=== PATIENT | male | born 1990 | race Caucasian/White ===

== ENCOUNTER 2016-05-28 23:12 | Emergency (ER) | payer OTHER ==
[~2016-05-28] VITALS: Ht 165.1 cm; Wt 104.5 kg
[~2016-05-28 23:12] MED LIST: BACTDS PO; CEPH-443 PO; HYDR-902 PO; HYDR-906 PO; OMEP20CA16 PO; OMEP20CA9 PO; ONDA4TAB14 PO; PANT40VI7 PO; ZOF4I PO
[2016-05-28 23:26] VITALS: Ht 165.1 cm; Wt 104.5 kg
[2016-05-29] MEDS ORDERED: IPRATROPIUM (NEB) 0.5 MG/2.5 ML AMP NEB STA (00:18)
[2016-05-29] MEDS ORDERED: ALBUTEROL 0.5% (NEB) 2.5 MG/0.5 ML AMP INH STA (00:18)
--- NOTE | 2016-05-29 00:21 | ERD ---
ER Documentation Chief Complaint Date/Time DATE: 05/29/16 TIME: 00:19 Chief Complaint SOB x 1 week, denies pain, while in waiting room c/o facial tingling. HPI 26-year-old male presents here in emergency department for complaints of cough short is better wheezing for one week. Patient has been having dry cough, does not cough up any phlegm or blood. Patient has episodes of wheezing and shortness of breath. Patient denies any fever or chills. Patient states that he was breathing fast, started to have numbness and tingling over the body. Patient did not take any medications to help with symptoms. Patient denies any chest pain or palpitations. ROS All systems reviewed and are negative except as per history of present illness. Medications Home Meds Active Scripts Cephalexin* (Keflex*) 500 Mg Capsule, 500 MG PO QID for 7 Days, CAP Prov:MATEUS ALMANZA MD 01/12/16 Sulfamethoxazole-Trimethoprim* (Bactrim* DS) 800-160 Mg Tab, 1 TAB PO BID for 7 Days, TAB Prov:MATEUS ALMANZA MD 01/12/16 Ondansetron (Ondansetron Odt) 4 Mg Tab.rapdis, 4 MG PO Q6H Y for NAUSEA AND/OR VOMITING, #10 TAB Prov:MATEUS ALMANZA MD 01/12/16 Hydrocodone/Acetaminophen ([place] 10-325 Tablet) 1 Each Tablet, 1 TAB PO Q6H Y for PAIN, #7 TAB Prov:MATEUS ALMANZA MD 01/12/16 Omeprazole* (Prilosec*) 20 Mg Capsule., 20 MG PO DAILY for 30 Days, CAP Prov:MATEUS ALMANZA MD 06/19/15 Omeprazole* (Omeprazole*) 20 Mg Capsule., 20 MG PO DAILY for 14 Days, CAP Prov:MARLEEN MONTERO PA-C 02/10/15 Hydrocodone Bit-Acetaminophen ([place]) 5-325 Mg Tablet, 1 TAB PO Q4H Y for PAIN, #30 TAB Prov:JAIDA ALVES MD 01/01/14 Pantoprazole* (Protonix* IV) 40 Mg Soln, 40 MG PO DAILY@06, #30 BOTTLE Prov:JAIDA ALVES MD 01/01/14 Ondansetron Hcl* (Zofran*) 2 Mg/Ml Soln, 4 MG PO Q4H Y for NAUSEA AND/OR VOMITING, #60 BOTTLE Prov:JAIDA ALVES MD 01/01/14 Allergies Allergies: Coded Allergies: No Known Allergy (Unverified , 10/05/13) PMhx/Soc Medical and Surgical Hx: pt denies Medical Hx, pt denies Surgical Hx History of Surgery: No Anesthesia Reaction: No Hx Neurological Disorder: No Hx Respiratory Disorders: No Hx Cardiac Disorders: No Hx Psychiatric Problems: No Hx Miscellaneous Medical Probl: No Hx Alcohol Use: No Hx Substance Use: No Hx Tobacco Use: No FmHx Family History: other (heart disease) Physical Exam Vitals Vital Signs Date Time Temp Pulse Resp B/P Pulse Ox O2 Delivery O2 Flow Rate FiO2 05/29/16 00:32 90 20 98 21 05/28/16 23:26 97.1 100 22 156/71 97 Physical Exam GENERAL: The patient is well developed and appropriate for usual state of health, in no apparent distress. CHEST: Diffuse wheezing bilaterally. There are no rales, crackles or rhonchi. HEART: Regular rate and rhythm. No murmurs, clicks, rubs or gallops. No S3 or S4. ABDOMEN: Soft, nontender and nondistended. Good bowel sounds. No rebound or guarding. No gross peritonitis. No gross organomegaly or masses. No Whiteside sign or McBurney point tenderness. BACK: No midline or flank tenderness. EXTREMITIES: Equal pulses bilaterally. There is no peripheral clubbing, cyanosis or edema. No focal swelling or erythema. Full range of motion. Grossly neurovascularly intact. NEURO: Alert and oriented. Cranial nerves 2-12 intact. Motor strength in all 4 extremities with 5/5 strength. Sensation grossly intact. Normal speech and gait. SKIN: There is no apparent rash or petechia. The skin is warm and dry. HEMATOLOGIC AND LYMPHATIC: There is no evidence of excessive bruising or lymphedema. No gross cervical, axillary, or inguinal lymphadenopathy. Results 24 hrs Current Medications Medications (Trade) Dose Ordered Sig/August Route PRN Reason Start Time Stop Time Status Last Admin Dose Admin Ipratropium [place] (Atrovent 0.02% (Neb)) 0.5 mg ONCE STAT NEB 05/29/16 00:18 2/7/17 00:19 DC 05/29/16 00:32 Albuterol (Proventil 0.5% (Neb)) 10 mg ONCE STAT INH 05/29/16 00:18 05/29/16 00:19 DC 05/29/16 00:32 Breathing treatment of albuterol and Atrovent was given here in emergency department, after treatment, patient's lungs sounds are clear and patient's oxygenation is better. Patient verbalized feeling much better. PROCEDURE: Chest. CLINICAL INDICATION: Shortness of breath. TECHNIQUE: Single frontal view of the chest was obtained. COMPARISON: 02/10/2015. FINDINGS: The cardiac silhouette is within normal limits. The aortic arch is unremarkable. There is no focal consolidation, vascular congestion or pleural effusion. There is no pneumothorax. IMPRESSION: No evidence for active cardiopulmonary disease. .Dc Levine MD, MD Date Time Electronically viewed and signed by .Dc Levine MD, MD on 05/29/2016 00:52 .T/ CC: SARA ROCA DISTANCE EDUCATION DIRECTOR Procedures/MDM Medical Decision Making: Patient symptoms are most likely consistent with acute bronchitis, which viral in origin. There is low suspicion for Pneumonia at this time since patients lungs sounds are clear after breathing treatment, patient O2 saturation is normal and patient doesnt show any respiratory distress. Patients chest xray doesnt show infiltrates or any other cardiopulmonary emergencies at this time. There is low suspicion for other cardiopulmonary emergencies at this time such as CHF, Pulmonary Embolism, Pneumothorax, Aortic Aneurysm or any other cardiopulmonary emergencies at this time. There is low suspicion for sepsis. Patient appears well and is hemodynamically stable. Patient does not have any fever. Disposition: Home. Condition: Stable Prescriptions: Guaifenesin DM, Zyrtec, ibuprofen, albuterol Instructions: Patient is advised to take medications as prescribed. Patient is advised to rest. Patient advised to increase fluid intake, do humidifier at home and if possible, do salt water gargles. Patient is advised that if symptoms are worse, shortness of breath, uncontrolled fever, stridor, vomiting, worst signs and symptoms to return to emergency department immediately. Otherwise, patient is advised to follow up with primary doctor in 5-7 days. Departure Diagnosis: Primary Impression: Acute bronchitis Bronchitis organism: unspecified organism Qualified Code: J20.9 - Acute bronchitis, unspecified organism Condition: Stable Patient Instructions: Bronchitis With Wheezing (Adult) Additional Instructions: Patient is advised to take medications as prescribed. Patient is advised to rest. Patient advised to increase fluid intake, do humidifier at home and if possible, do salt water gargles. Patient is advised that if symptoms are worse, shortness of breath, uncontrolled fever, stridor, vomiting, worst signs and symptoms to return to emergency department immediately. Otherwise, patient is advised to follow up with primary doctor in 5-7 days. SARA ROCA NP May 29, 2016 00:21
--- NOTE | 2016-05-29 00:53 | RADRPT ---
PROCEDURE: Chest. CLINICAL INDICATION: Shortness of breath. TECHNIQUE: Single frontal view of the chest was obtained. COMPARISON: 02/10/2015. FINDINGS: The cardiac silhouette is within normal limits. The aortic arch is unremarkable. There is no focal consolidation, vascular congestion or pleural effusion. There is no pneumothorax. IMPRESSION: No evidence for active cardiopulmonary disease. .Dc Levine MD, Date Time Electronically viewed and signed by .Dc Levine MD, on 05/29/2016 00:52 .T/
[2016-05-29] MEDS ORDERED: GUAI120S26 PO (01:58)
[2016-05-29] MEDS ORDERED: ALBU8.5H3 INH (01:58)
[2016-05-29] MEDS ORDERED: CETI10CA PO (01:58)
[2016-05-29] MEDS ORDERED: IBUP-1542 PO (01:59)
[2016-05-29 02:09] VITALS: BP 134/81; PULSE 109; RESP 18; TEMP 98.1
== END 2016-05-29 02:09 | disposition home or self-care (01) ==
LOC: FTE 23:12
DX: J20.9 Acute bronchitis, unspecified (principal)
CPT/HCPCS: 71010; Z7502; Z7610

== ENCOUNTER 2016-11-25 01:31 | Emergency (ER) | END 2016-11-25 03:44 | disposition home or self-care (01) | DX: R07.89 Other chest pain (principal); E66.9 Obesity, unspecified; Z68.43 Body mass index [BMI] 50.0-59.9, adult | CPT/HCPCS: 36415; 71010; 80053; 84484; 85025; 93005; Z7502 ==

== ENCOUNTER 2017-04-24 19:09 | Emergency (ER) | END 2017-04-25 02:58 | disposition left against medical advice (07) ==

== ENCOUNTER 2017-09-22 09:20 | Emergency (ER) | END 2017-09-22 12:23 | disposition home or self-care (01) ==